=== PATIENT | female | born 1950 | race Caucasian/White ===

== ENCOUNTER 2017-09-04 16:35 | Inpatient (IN) | payer MEDICARE ==
[~2017-09-04] VITALS: Ht 160 cm; Wt 100.0 kg
[~2017-09-04 16:35] MED LIST: CHOL10002 PO; CYAN-19 PO; FLUO10CA30 PO; LISI-604 PO; METF10002 PO; MULT1TAB74 PO; SIMV10TA6 PO; THY60T PO
[2017-09-04] MEDS ORDERED: diltiazem-D5W 125mg/125ml 125 ML IV ONE (16:43)
[2017-09-04] MEDS ORDERED: aspirin 81mg tab.chew PO ONE (16:45)
[2017-09-04] MEDS ORDERED: diltiazem 5mg/ml 5ml inj. IV ONE ×2 (16:45→17:45)
[2017-09-04 17:28] LABS: BASOPHILS % (AUTO) 0.4 % (0-1); EOSINOPHILS # (AUTO) 0.3 X10'3 (0-0.9); EOSINOPHILS % (AUTO) 7.4 % (0-6); HEMATOCRIT 46.2 % (35.0-45.0); HEMOGLOBIN 15.2 g/dl (12.0-16.0); LYMPHOCYTES # (AUTO) 0.9 X10'3 (1.1-4.8); LYMPHOCYTES % (AUTO) 22.6 % (21-51); MEAN CORPUSCULAR HEMOGLOBIN 29.6 PG (27.0-31.0); MEAN CORPUSCULAR HGB CONC 32.9 % (33.0-36.5); MEAN CORPUSCULAR VOLUME 89.8 FL (78-98); MEAN PLATELET VOLUME 9.5 FL (7.4-10.4); MONOCYTES # (AUTO) 0.6 X10'3 (0-0.9); MONOCYTES % (AUTO) 16.2 % (2-12); NEUTROPHILS % (AUTO) 53.4 % (42-75); PLATELET COUNT 166 X10'3 (140-440); RED BLOOD COUNT 5.15 X10'6 (4.20-5.60); WHITE BLOOD COUNT 3.8 X10'3 (4.5-11.0)
[2017-09-04 17:33] LABS: ALANINE AMINOTRANSFERASE 39 U/L (12-78); ALBUMIN 3.7 G/DL (3.4-5.0); ALBUMIN/GLOBULIN RATIO 0.9 (1.1-1.5); ALKALINE PHOSPHATASE 94 IU/L (46-116); ANION GAP 10 (8-16); ASPARTATE AMINO TRANSFERASE 22 U/L (10-37); BILIRUBIN,TOTAL 0.2 MG/DL (0.1-1.0); BLOOD UREA NITROGEN 15 MG/DL (7-18); BUN/CREATININE RATIO 19.2 (6.6-38.0); CALCIUM 8.8 MG/DL (8.5-10.1); CHLORIDE 104 MMOL/L (99-107); CREATININE 0.78 MG/DL (0.40-0.90); GLUCOSE 217 MG/DL (70-104); POTASSIUM 3.9 MMOL/L (3.5-5.1); SODIUM 141 MMOL/L (135-145); TOTAL CARBON DIOXIDE 27.1 MMOL/L (24-32); TOTAL PROTEIN 7.9 G/DL (6.4-8.2); eGFR 73 ML/MIN
[2017-09-04 17:42] LABS: MAGNESIUM 1.6 MG/DL (1.5-2.4)
[2017-09-04] MEDS ORDERED: metoprolol tartrate 1mg/ml inj IV ONE (18:00)
[2017-09-04] MEDS ORDERED: mag hydrox/Alum hydrox/simeth 30ml oral suspension PO PRN (18:25)
[2017-09-04] MEDS ORDERED: magnesium hydroxide 30ml (MOM) UD suspension PO PRN (18:25)
[2017-09-04] MEDS ORDERED: ondansetron/PF 4mg/2ml inj IV PRN (18:25)
[2017-09-04] MEDS ORDERED: acetaminophen 325mg tablet PO PRN (18:25)
[2017-09-04] MEDS ORDERED: enoxaparin 50mg/0.5ml (from 3ml vial) syringe SUBCUT SCH (20:00)
[2017-09-04] MEDS: enoxaparin 100mg/ml syringe SUBCUT SCH (20:18)
[2017-09-04] MEDS ORDERED: lisinopril 5mg tablet PO SCH (21:00)
[2017-09-04] MEDS ORDERED: atorvastatin 10mg tablet PO SCH (21:00)
[2017-09-04] MEDS: diltiazem CD 180mg cap (once-daily) PO SCH (22:02)
[2017-09-05 05:55] LABS: ALBUMIN 3.2 G/DL (3.4-5.0); ANION GAP 9 (8-16); BLOOD UREA NITROGEN 19 MG/DL (7-18); BUN/CREATININE RATIO 26.8 (6.6-38.0); CALCIUM 8.7 MG/DL (8.5-10.1); CHLORIDE 105 MMOL/L (99-107); CREATININE 0.71 MG/DL (0.40-0.90); GLUCOSE 163 MG/DL (70-104); POTASSIUM 3.9 MMOL/L (3.5-5.1); SODIUM 142 MMOL/L (135-145); eGFR 82 ML/MIN
[2017-09-05 07:24] LABS: BASOPHILS % (AUTO) 0.1 % (0-1); EOSINOPHILS # (AUTO) 0.2 X10'3 (0-0.9); EOSINOPHILS % (AUTO) 5.8 % (0-6); HEMATOCRIT 41.2 % (35.0-45.0); HEMOGLOBIN 13.8 g/dl (12.0-16.0); LYMPHOCYTES # (AUTO) 0.9 X10'3 (1.1-4.8); LYMPHOCYTES % (AUTO) 21.3 % (21-51); MEAN CORPUSCULAR HEMOGLOBIN 29.6 PG (27.0-31.0); MEAN CORPUSCULAR HGB CONC 33.5 % (33.0-36.5); MEAN CORPUSCULAR VOLUME 88.3 FL (78-98); MEAN PLATELET VOLUME 8.8 FL (7.4-10.4); MONOCYTES # (AUTO) 0.8 X10'3 (0-0.9); MONOCYTES % (AUTO) 19.7 % (2-12); NEUTROPHILS # (AUTO) 2.2 X10'3 (1.8-7.7); NEUTROPHILS % (AUTO) 53.1 % (42-75); PLATELET COUNT 158 X10'3 (140-440); RED BLOOD COUNT 4.67 X10'6 (4.20-5.60); RED CELL DISTRIBUTION WIDTH 14.3 % (11.5-14.5); WHITE BLOOD COUNT 4.1 X10'3 (4.5-11.0)
[2017-09-05] MEDS ORDERED: multivitamins, therapeutics tablet PO SCH (08:00)
[2017-09-05] MEDS ORDERED: cyanocobalamin 500mcg tablet PO SCH (08:00)
[2017-09-05] MEDS ORDERED: thyroid, pork 30mg tablet PO SCH ×2 (08:00→12:37)
[2017-09-05] MEDS ORDERED: vitamin D (cholecalciferol) 1,000 unit tablet PO SCH (08:00)
[2017-09-05] MEDS ORDERED: FLUoxetine 10mg capsule PO SCH (08:00)
[2017-09-05 08:39] LABS: HEMOGLOBIN A1C 6.2 % (4.5-6.2)
[2017-09-05 10:08] VITALS: BP 146/77
[2017-09-05] MEDS: enoxaparin 100mg/ml syringe SUBCUT SCH (10:53)
[2017-09-05] MEDS: diltiazem CD 180mg cap (once-daily) PO SCH (10:53)
[2017-09-05] MEDS ORDERED: THYR30TA21 PO (13:27)
[2017-09-05] MEDS ORDERED: APIX5TAB3 PO (13:27)
[2017-09-05] MEDS ORDERED: DILT180C66 PO (13:27)
[2017-09-05] MEDS ORDERED: apixaban 5mg tablet PO SCH (20:00)
[2017-09-06] MEDS ORDERED: FLU VACC QS2017-18 36MOS UP/PF 60 MCG/0.5 ML SYRINGE IMVAC ONE (10:00)
== END 2017-09-05 14:30 | disposition home or self-care (01) | DRG 310 ==
LOC: ER 16:36 → ED HOLD 18:28 → EDBEDREQTM 21:05 → MED 3N 09-05 10:07
PROVIDERS: ADMIT Family Medicine; ATTEND Family Medicine
PROC: 3E0234Z Introduction of Serum, Toxoid and Vaccine into Muscle, Percutaneous Approach (ICD-10-PCS; principal; 2017-09-05)
DX: I48.91 Unspecified atrial fibrillation (principal); E66.01 Morbid (severe) obesity due to excess calories; E11.9 Type 2 diabetes mellitus without complications; E78.5 Hyperlipidemia, unspecified; G47.33 Obstructive sleep apnea (adult) (pediatric); E03.9 Hypothyroidism, unspecified; I10 Essential (primary) hypertension; Z79.899 Other long term (current) drug therapy; Z79.01 Long term (current) use of anticoagulants; Z79.84 Long term (current) use of oral hypoglycemic drugs; Z80.6 Family history of leukemia; Z23 Encounter for immunization; Z68.39 Body mass index [BMI] 39.0-39.9, adult
CPT/HCPCS: 36415; 71045; 71250; 80048; 80053; 83036; 83735; 83880; 84443; 84484; 85025; 87070; 87502; 87503; 93005; 93306; 96365; 96376; 99285; J1650; J3420; J3490

== ENCOUNTER 2017-11-20 15:59 | Emergency (ER) | payer MEDICARE ==
[~2017-11-20] VITALS: Ht 162.6 cm; Wt 85.0 kg
[~2017-11-20 15:59] MED LIST changes: +APIX5TAB3 PO; +DILT180C66 PO; -THY60T PO; +THYR30TA21 PO
[2017-11-20] MEDS ORDERED: normal saline 1000ml 1,000 ML IV ONE (16:16)
[2017-11-20] MEDS ORDERED: normal saline 1000ML IV soln IVB ONE (16:20)
[2017-11-20 16:43] LABS: BASOPHILS # (AUTO) 0.1 X10'3 (0-0.2); BASOPHILS % (AUTO) 0.9 % (0-1); EOSINOPHILS # (AUTO) 0.2 X10'3 (0-0.9); HEMATOCRIT 40.8 % (35.0-45.0); LYMPHOCYTES # (AUTO) 1.5 X10'3 (1.1-4.8); LYMPHOCYTES % (AUTO) 16.3 % (21-51); MEAN CORPUSCULAR HEMOGLOBIN 29.5 PG (27.0-31.0); MEAN CORPUSCULAR HGB CONC 34.2 % (33.0-36.5); MEAN CORPUSCULAR VOLUME 86.2 FL (78-98); MEAN PLATELET VOLUME 9.5 FL (7.4-10.4); MONOCYTES % (AUTO) 10.3 % (2-12); NEUTROPHILS # (AUTO) 6.7 X10'3 (1.8-7.7); NEUTROPHILS % (AUTO) 70.5 % (42-75); PLATELET COUNT 240 X10'3 (140-440); RED BLOOD COUNT 4.74 X10'6 (4.20-5.60); RED CELL DISTRIBUTION WIDTH 13.8 % (11.5-14.5); WHITE BLOOD COUNT 9.5 X10'3 (4.5-11.0)
[2017-11-20 16:48] LABS: PARTIAL THROMBOPLASTIN TIME 31 SECONDS (22-32); PROTHROMBIN TIME 10.5 SECONDS (9.0-12.0)
[2017-11-20] MEDS ORDERED: amiodarone 150mg/dext, iso-os 100 ML IV ONE ×2 (16:55→20:00)
[2017-11-20 16:59] LABS: CREATINE KINASE 56 U/L (26-192); MAGNESIUM 1.7 MG/DL (1.5-2.4)
[2017-11-20 17:12] LABS: ALANINE AMINOTRANSFERASE 27 U/L (12-78); ALBUMIN 3.3 G/DL (3.4-5.0); ALBUMIN/GLOBULIN RATIO 0.8 (1.1-1.5); ALKALINE PHOSPHATASE 82 IU/L (46-116); ANION GAP 12 (8-16); ASPARTATE AMINO TRANSFERASE 12 U/L (10-37); BILIRUBIN,TOTAL 0.3 MG/DL (0.1-1.0); BLOOD UREA NITROGEN 20 MG/DL (7-18); BUN/CREATININE RATIO 31.7 (6.6-38.0); CALCIUM 9.2 MG/DL (8.5-10.1); CHLORIDE 105 MMOL/L (99-107); CREATININE 0.63 MG/DL (0.40-0.90); GLUCOSE 124 MG/DL (70-104); POTASSIUM 4.2 MMOL/L (3.5-5.1); SODIUM 143 MMOL/L (135-145); TOTAL CARBON DIOXIDE 26.5 MMOL/L (24-32); TOTAL PROTEIN 7.5 G/DL (6.4-8.2); eGFR > 90 ML/MIN
[2017-11-20] MEDS: metoprolol tartrate 1mg/ml inj IV SCH ×5 (17:49→21:07)
[2017-11-20 18:03] LABS: CLARITY,URINE CLEAR (Clear); COLOR,URINE YELLOW (Yellow); GLUCOSE, URINE NEGATIVE (Neg); KETONES,URINE NEGATIVE (Neg); LEUKOCYTE ESTERASE ,URINE NEGATIVE (Neg); NITRITES, URINE NEGATIVE (Neg); OCCULT BLOOD,URINE NEGATIVE (Neg); PH,URINE 5.5 (4.8-8.0); PROTEIN,URINE NEGATIVE (Neg); UROBILINOGEN,URINE 0.2 E.U/dL (0.2-1.0)
[2017-11-20] MEDS ORDERED: SOTA80TA69 PO (18:03)
[2017-11-20 18:22] LABS: UA COLLECTION TYPE CLN CATCH MIDSTREAM
[2017-11-20] MEDS ORDERED: metoprolol tartrate 1mg/ml inj IV SCH (20:00)
[2017-11-20 21:22] VITALS: BP 136/76
== END 2017-11-20 21:23 | disposition home or self-care (01) ==
LOC: ER 15:59
DX: I48.91 Unspecified atrial fibrillation (principal); F17.200 Nicotine dependence, unspecified, uncomplicated; E11.9 Type 2 diabetes mellitus without complications; Z79.899 Other long term (current) drug therapy; Z56.0 Unemployment, unspecified
CPT/HCPCS: 36415; 71045; 80053; 81003; 82550; 83735; 83880; 84484; 85025; 85610; 85730; 93005; 96361; 96374; 99285; J0282; J3490

== ENCOUNTER 2017-12-09 17:57 | Inpatient (IN) | payer MEDICARE ==
[~2017-12-09] VITALS: Ht 160 cm; Wt 110.0 kg
[~2017-12-09 17:57] MED LIST changes: +SOTA80TA69 PO
[2017-12-09 18:39] LABS: BASOPHILS % (AUTO) 0.3 % (0-1); EOSINOPHILS # (AUTO) 0.2 X10'3 (0-0.9); EOSINOPHILS % (AUTO) 1.9 % (0-6); HEMATOCRIT 42.4 % (35.0-45.0); HEMOGLOBIN 14.3 g/dl (12.0-16.0); LYMPHOCYTES # (AUTO) 1.5 X10'3 (1.1-4.8); LYMPHOCYTES % (AUTO) 14.9 % (21-51); MEAN CORPUSCULAR HGB CONC 33.6 % (33.0-36.5); MEAN CORPUSCULAR VOLUME 86.2 FL (78-98); MEAN PLATELET VOLUME 9.5 FL (7.4-10.4); MONOCYTES % (AUTO) 9.2 % (2-12); NEUTROPHILS # (AUTO) 7.6 X10'3 (1.8-7.7); NEUTROPHILS % (AUTO) 73.7 % (42-75); PLATELET COUNT 259 X10'3 (140-440); RED BLOOD COUNT 4.91 X10'6 (4.20-5.60); RED CELL DISTRIBUTION WIDTH 13.6 % (11.5-14.5); WHITE BLOOD COUNT 10.3 X10'3 (4.5-11.0)
[2017-12-09 18:51] LABS: PARTIAL THROMBOPLASTIN TIME 32 SECONDS (22-32); PROTHROMBIN TIME 10.7 SECONDS (9.0-12.0)
[2017-12-09 19:20] LABS: ALANINE AMINOTRANSFERASE 29 U/L (12-78); ALBUMIN 3.6 G/DL (3.4-5.0); ALBUMIN/GLOBULIN RATIO 0.8 (1.1-1.5); ALKALINE PHOSPHATASE 90 IU/L (46-116); ANION GAP 11 (8-16); ASPARTATE AMINO TRANSFERASE 18 U/L (10-37); BILIRUBIN,TOTAL 0.2 MG/DL (0.1-1.0); BLOOD UREA NITROGEN 20 MG/DL (7-18); BUN/CREATININE RATIO 29.4 (6.6-38.0); CALCIUM 9.7 MG/DL (8.5-10.1); CHLORIDE 105 MMOL/L (99-107); CREATININE 0.68 MG/DL (0.40-0.90); GLUCOSE 140 MG/DL (70-104); POTASSIUM 3.9 MMOL/L (3.5-5.1); SODIUM 143 MMOL/L (135-145); TOTAL CARBON DIOXIDE 27.4 MMOL/L (24-32); eGFR 86 ML/MIN
[2017-12-09] MEDS ORDERED: metoprolol tartrate 1mg/ml inj IV ONE ×2 (19:20→20:20)
[2017-12-09] MEDS ORDERED: amiodarone/D5 450MG/250ML BAG 250 ML IV SCH (21:00)
[2017-12-09] MEDS ORDERED: amiodarone 150mg/dext, iso-os 100 ML IV ONE (21:00)
[2017-12-09] MEDS ORDERED: amiodarone/D5 360MG/200ML BAG 200 ML IV ONE (21:27)
[2017-12-09] MEDS ORDERED: ondansetron/PF 4mg/2ml inj IV PRN (23:15)
[2017-12-09] MEDS ORDERED: potassium Cl 20 mEq SR tablet PO PRN ×2 (23:15)
[2017-12-09] MEDS ORDERED: potassium Cl 40MEQ/NS 500ml 500 ML IV PRN ×2 (23:15)
[2017-12-09] MEDS ORDERED: acetaminophen 325mg tablet PO PRN (23:15)
[2017-12-09] MEDS ORDERED: glucagon, human recombinant 1mg kit SUBCUT PRN (23:30)
[2017-12-09] MEDS ORDERED: dextrose ORAL solution 15 GM/59 ML bottle PO PRN ×2 (23:30)
[2017-12-09] MEDS ORDERED: dextrose 50%-water 50ml dispensing syringe IV PRN ×2 (23:30)
[2017-12-09] MEDS ORDERED: insulin Lispro (HumaLOG) vial - multi-dose SQ SCH (23:30)
[2017-12-09] MEDS ORDERED: MESSAGE TO PHARMACY PO ONE (23:30)
[2017-12-09 23:50] LABS: HEMOGLOBIN A1C 5.9 % (4.5-6.2)
[2017-12-10] VITALS: BP 131/92
[2017-12-10] MEDS ORDERED: amiodarone/D5 360MG/200ML BAG 200 ML IV SCH (04:23)
[2017-12-10 06:00] VITALS: BP 117/57
[2017-12-10 06:03] LABS: BASOPHILS # (AUTO) 0.1 X10'3 (0-0.2); BASOPHILS % (AUTO) 0.8 % (0-1); EOSINOPHILS # (AUTO) 0.2 X10'3 (0-0.9); EOSINOPHILS % (AUTO) 2.6 % (0-6); HEMATOCRIT 39.9 % (35.0-45.0); HEMOGLOBIN 13.4 g/dl (12.0-16.0); LYMPHOCYTES # (AUTO) 1.8 X10'3 (1.1-4.8); MEAN CORPUSCULAR HEMOGLOBIN 28.9 PG (27.0-31.0); MEAN CORPUSCULAR HGB CONC 33.5 % (33.0-36.5); MEAN CORPUSCULAR VOLUME 86.1 FL (78-98); MEAN PLATELET VOLUME 9.4 FL (7.4-10.4); MONOCYTES # (AUTO) 0.9 X10'3 (0-0.9); MONOCYTES % (AUTO) 10.3 % (2-12); NEUTROPHILS # (AUTO) 5.5 X10'3 (1.8-7.7); NEUTROPHILS % (AUTO) 65.3 % (42-75); PLATELET COUNT 224 X10'3 (140-440); RED BLOOD COUNT 4.63 X10'6 (4.20-5.60); RED CELL DISTRIBUTION WIDTH 13.8 % (11.5-14.5); WHITE BLOOD COUNT 8.5 X10'3 (4.5-11.0)
[2017-12-10 06:48] LABS: ALBUMIN 3.2 G/DL (3.4-5.0); ANION GAP 12 (8-16); BLOOD UREA NITROGEN 19 MG/DL (7-18); BUN/CREATININE RATIO 27.9 (6.6-38.0); CALCIUM 9.1 MG/DL (8.5-10.1); CHLORIDE 106 MMOL/L (99-107); CREATININE 0.68 MG/DL (0.40-0.90); GLUCOSE 119 MG/DL (70-104); POTASSIUM 3.9 MMOL/L (3.5-5.1); SODIUM 144 MMOL/L (135-145); TOTAL CARBON DIOXIDE 26.1 MMOL/L (24-32); eGFR 86 ML/MIN
[2017-12-10] MEDS ORDERED: metFORMIN 500mg tablet PO SCH (07:00)
[2017-12-10] MEDS ORDERED: thyroid, pork 30mg tablet PO SCH (08:00)
[2017-12-10] MEDS ORDERED: multivitamins, therapeutics tablet PO SCH (08:00)
[2017-12-10] MEDS ORDERED: K and/or MAG REPLACEMENT MC SCH (08:00)
[2017-12-10] MEDS ORDERED: vitamin D (cholecalciferol) 1,000 unit tablet PO SCH (08:00)
[2017-12-10] MEDS ORDERED: FLUoxetine 10mg capsule PO SCH (08:00)
[2017-12-10] MEDS ORDERED: sotalol 80mg tablet PO SCH (08:00)
[2017-12-10] MEDS ORDERED: apixaban 5mg tablet PO SCH (08:00)
[2017-12-10] MEDS ORDERED: THY60T PO (10:06)
[2017-12-10] MEDS ORDERED: SOTA80TA69 PO (10:06)
[2017-12-10] MEDS ORDERED: lisinopril 5mg tablet PO SCH (21:00)
[2017-12-10] MEDS ORDERED: atorvastatin 10mg tablet PO SCH (21:00)
[2017-12-10] MEDS ORDERED: insulin glargine (Lantus) pen - multi-dose SQ SCH (21:00)
[2017-12-10] MEDS ORDERED: SIMVASTATIN PO SCH (21:00)
== END 2017-12-10 10:45 | disposition home or self-care (01) | DRG 309 ==
LOC: ER 17:57 → ED HOLD 23:12 → PCU 3S 12-10 00:10
PROVIDERS: ADMIT Family Medicine; ATTEND Internal Medicine
PROC: 5A09357 Assistance with Respiratory Ventilation, Less than 24 Consecutive Hours, Continuous Positive Airway Pressure (ICD-10-PCS; principal; 2017-12-09)
DX: I48.0 Paroxysmal atrial fibrillation (principal); Z68.41 Body mass index [BMI] 40.0-44.9, adult; E03.9 Hypothyroidism, unspecified; E11.9 Type 2 diabetes mellitus without complications; G47.33 Obstructive sleep apnea (adult) (pediatric); E66.8 Other obesity; I10 Essential (primary) hypertension; Z60.2 Problems related to living alone; Z88.5 Allergy status to narcotic agent; Z79.899 Other long term (current) drug therapy; Z79.84 Long term (current) use of oral hypoglycemic drugs; Z79.01 Long term (current) use of anticoagulants; Z87.891 Personal history of nicotine dependence; Z80.3 Family history of malignant neoplasm of breast
CPT/HCPCS: 36415; 71045; 80048; 80053; 82948; 83036; 83735; 83880; 84443; 84484; 85025; 85610; 85730; 93005; J0282; J1815; J3420; J3490

== ENCOUNTER 2023-10-08 15:23 | Emergency (ER) | payer MEDICARE, OTHER ==
[~2023-10-08] VITALS: Ht 157.5 cm; Wt 77.3 kg
[~2023-10-08 15:23] MED LIST changes: -CYAN-19 PO; +CYAN100019 PO; -FLUO10CA30 PO; -LISI-604 PO; +LISI5TAB22 PO; +METF-438 PO; -METF10002 PO; +MULT-620 PO; -MULT1TAB74 PO; +PROZ10C PO; -SIMV10TA6 PO; +SIMV10TA98 PO; -SOTA80TA69 PO; +SOTA80TA73 PO; -THYR30TA21 PO
[2023-10-08 15:49] VITALS: BP 149/68; PULSE 68; RESP 18; TEMP 97.3; O2SAT 96
== END 2023-10-08 17:57 | disposition home or self-care (01) ==
LOC: ER 15:23
DX: R00.1 Bradycardia, unspecified (principal); R42 Dizziness and giddiness; I10 Essential (primary) hypertension; E11.9 Type 2 diabetes mellitus without complications; Z88.5 Allergy status to narcotic agent; Z88.8 Allergy status to other drugs, medicaments and biological substances; Z79.899 Other long term (current) drug therapy
CPT/HCPCS: 93005; 99283